=== PATIENT | female | born 1975 | race Hispanic/Latino ===

== ENCOUNTER 2020-09-23 15:14 | Inpatient (IN) | payer BC, SELFPAY ==
[2020-09-23] MEDS ORDERED: hydrALAZINE 20 MG/ML VIAL SLOW IVP PRN (16:12)
--- NOTE | 2020-09-23 16:12 | PDOC.LDHP ---
Labor and Delivery H&P HPI: 44 y/o with EDC of 10/16/20 at 36 weeks, transferred to [facility] by EMS from [facility] for Elevated BP and COVID-19 Positive Status. patient followed clinically by Dr. Philippe Nava, and seen earlier this week in his office. Current gestational age (weeks): 36 Due date: 10/16/20 Grav: 6 Para: 3 Current complications: other (Advanved Maternal Age, Morbid Obesity, COVID-19 Positive, Hx x3, SABx2, Size > Dates, 81mg use po qDay) - Physical Exam General: NAD, resting Heart: RRR Lungs: CTAB Abdomen: gravid Extremeties: no edema FHT: category 1 - Assessment COVID-19 Positive, Hypertensive Crisis thought to be caused by severe preeclampsia - Plan Plan: admit to L&D, to OR for section
[2020-09-23] MEDS ORDERED: Calcium Gluc 4.6 MEQ/10 ML (100 MG/ML) SLOW IVP PRN (16:15)
[2020-09-23] MEDS ORDERED: Bicitra 30 ML UDCUP PO SCH (16:15)
[2020-09-23] MEDS ORDERED: Magnesium Sulfate 20 GM/WATER 500 ML BAG IVPB SCH (16:15)
[2020-09-23] MEDS ORDERED: Ondansetron PF 4 MG/2 ML Vial ONE ×2 (16:20→17:50)
[2020-09-23] MEDS ORDERED: ePHEDrine 50 MG/ML VIAL ONE (16:20)
[2020-09-23] MEDS ORDERED: PHENYLEPHRINE-NS 100 MCG/ML 10 ML SYRINGE ONE (16:20)
[2020-09-23] MEDS ORDERED: Morphine PF 10 MG/10 ML VIAL ONE (16:20)
[2020-09-23] MEDS ORDERED: Oxytocin 10 UNITS/ML VIAL ONE (16:20)
[2020-09-23 16:24] LABS: Hemoglobin 13.1 g/dL (12.0-16.0); Mean Corpuscular HGB CONC 34.2 g/dL (32.0-36.0); Mean Corpuscular Hemoglobin 32.3 pg (27.0-31.0); Mean Corpuscular Volume 94.4 fL (78.0-98.0); Mean Platelet Volume 8.3 fL (7.4-10.4); Platelet Count 151 thou/uL (130-400); RBC Distribution Width 12.5 % (11.5-14.5); Red Blood Cell (RBC) Count 4.06 mill/uL (4.20-5.40); White Blood Cell (WBC) Count 9.8 thou/uL (4.8-10.8)
[2020-09-23 16:32] VITALS: BMI 44.4
[2020-09-23] MEDS: Labetalol HCl 100 MG/20 ML VIAL SLOW IVP PRN ×3 (16:32→22:06)
[2020-09-23] MEDS ORDERED: CEFAZOLIN 2 GM in Premix Bag 1 BAG IVPB SCH (16:45)
[2020-09-23 17:13] LABS: ALT (SGPT) 9 U/L (8-55); AST (SGOT) 16 U/L (5-34); Albumin 3.3 g/dL (3.5-5.0); Alkaline Phosphatase 157 U/L (40-110); Anion Gap 15 mmol/L (10-20); BUN (Urea Nitrogen) 9 mg/dL (7.0-18.7); Bilirubin, Total 0.3 mg/dL (0.2-1.2); Calc. Creatinine Clearance 172 mL/min (70-130); Calcium 9.3 mg/dL (7.8-10.44); Carbon Dioxide 19 mmol/L (22-29); Chloride 110 mmol/L (98-107); Globulin 2.9 g/dL (2.4-3.5); Glucose 89 mg/dL (70-105); Protein, Total 6.2 g/dL (6.0-8.3); Sodium 140 mmol/L (136-145)
[2020-09-23 17:19] LABS: HBSAg Index 0.15 S/CO (0-0.99); Hep B Surf Ag Non-Reactive S/CO (NonReactive); Syphilis Antibody Nonreactive (Nonreactive); Syphilis Antibody Index 0.03 S/CO (<1.00 Non-Reactive)
[2020-09-23] MEDS ORDERED: Ketamine 50 MG/ML (10ML VIAL) ONE (17:34)
[2020-09-23] MEDS ORDERED: Ketorolac Tromethamine 30 MG/ML VIAL ONE (17:50)
[2020-09-23] MEDS ORDERED: Dexamethasone 4 mg/ml Vial ONE (17:50)
[2020-09-23] MEDS ORDERED: Midazolam HCl 2 mg/2 ml Vial ONE (17:52)
[2020-09-23] MEDS ORDERED: PROPOFOL 20 ML ONE (17:55)
[2020-09-23] MEDS ORDERED: Naloxone HCl 0.4 mg/ml Vial IVP PRN ×2 (18:57)
[2020-09-23] MEDS ORDERED: Ondansetron HCl/PF 4 MG/2 ML Vial IVP PRN (18:57)
[2020-09-23] MEDS ORDERED: Naloxone HCl 0.4 mg/ml Vial IV PRN (18:57)
[2020-09-23] MEDS ORDERED: Ondansetron PF 4 MG/2 ML Vial IVP PRN (18:57)
[2020-09-23] MEDS ORDERED: Meperidine HCl/PF 25 MG/ML VIAL SLOW IVP PRN (18:57)
[2020-09-23] MEDS ORDERED: HYDROmorphone 2 MG/ML VIAL SLOW IVP PRN (18:57)
[2020-09-23] MEDS ORDERED: L&D-Morphine 4 MG/ML VIAL SLOW IVP PRN (18:57)
[2020-09-23] MEDS ORDERED: diphenhydrAMINE 50 MG/ML VIAL IVP PRN (18:57)
[2020-09-23] MEDS ORDERED: Promethazine HCl 25 MG/ML VIAL IM PRN (18:57)
[2020-09-23] MEDS ORDERED: Promethazine HCl 25 MG SUPP PR PRN (18:57)
[2020-09-23] MEDS ORDERED: Communication Order-Pharmacy FS SCH (19:00)
[2020-09-23 19:14] LABS: Creatinine, Urine Less than 20.00 mg/dL (47-110); Protein, Urine Random Quant Less than 10 mg/dL (1-14)
[2020-09-23] MEDS ORDERED: Labetalol HCl 100 MG/20 ML VIAL SLOW IVP SCH (19:30)
[2020-09-23 21:36] LABS: #Lymphocytes 1.2 thou/uL (1.20-3.40); #Monocytes 0.5 thou/uL (0.11-0.59); %Basophils 0.1 % (0.0-1.0); %Eosinophils 0.2 % (0.0-10.0); %Lymphocytes 6.2 % (21.0-51.0); %Monocytes 2.3 % (0.0-10.0); %Neutrophils 91.2 % (42.0-75.0); Hemoglobin 12.1 g/dL (12.0-16.0); Mean Corpuscular HGB CONC 32.9 g/dL (32.0-36.0); Mean Corpuscular Hemoglobin 31.8 pg (27.0-31.0); Mean Corpuscular Volume 96.6 fL (78.0-98.0); Mean Platelet Volume 8.2 fL (7.4-10.4); Platelet Count 153 thou/uL (130-400); RBC Distribution Width 12.4 % (11.5-14.5); Red Blood Cell (RBC) Count 3.81 mill/uL (4.20-5.40); White Blood Cell (WBC) Count 19.7 thou/uL (4.8-10.8)
[2020-09-23 21:48] LABS: Fibrinogen 600 mg/dL (253-463); INR-International Normal Ratio 0.9; Prothrombin Time 12.4 sec (12.0-14.7)
[2020-09-23 22:35] LABS: FSP-Qualitative ABNORMAL (Normal)
[2020-09-23 22:36] LABS: FSP-Semiquantitative >=5 & <20 mcg/mL (Less than 5)
[2020-09-23] MEDS: Ketorolac Tromethamine 30 MG/ML VIAL IVP PRN (23:58)
[2020-09-24] MEDS ORDERED: Misoprostol 200 MCG TAB PR PRN (02:07)
--- NOTE | 2020-09-24 02:07 | PDOC.PP ---
Post Progress Note Post Day #: 1 PO intake tolerated: no (CMP from last night is WNL. Repeat CBC. NL PT/INR. Fibrinogen is 400. No clear evidence of coagulopathy or DIC. Codi previously on ASA 81mg q Day (likely responisble for some intraoperative oozing). Plan to start Lovenoz 12 hours post op per ACOG guidelines.) Vital Signs (12 hours) Temp Pulse Resp BP BP Pulse Ox 09/24/20 00:00 93 152/70 H 09/23/20 22:06 82 160/74 H 09/23/20 19:46 77 174/83 H 09/23/20 16:52 88 09/23/20 16:32 88 09/23/20 16:21 98.3 F 88 16 181/85 H 97 Weight Weight 275 lb Result Diagrams: 09/23/20 21:20 09/23/20 16:16 Additional Labs: Post Labs Hep Bs Antigen Non-Reactive S/CO (NonReactive) 09/23/20 16:16 Blood Type O POSITIVE 09/23/20 16:44
[2020-09-24] MEDS: Ketorolac Tromethamine 30 MG/ML VIAL IVP PRN (06:03)
[2020-09-24 06:42] LABS: Mean Corpuscular HGB CONC 33.8 g/dL (32.0-36.0); Mean Corpuscular Hemoglobin 32.4 pg (27.0-31.0); Mean Corpuscular Volume 95.8 fL (78.0-98.0); Mean Platelet Volume 8.2 fL (7.4-10.4); Platelet Count 136 thou/uL (130-400); RBC Distribution Width 12.4 % (11.5-14.5); Red Blood Cell (RBC) Count 3.41 mill/uL (4.20-5.40); White Blood Cell (WBC) Count 15.6 thou/uL (4.8-10.8)
[2020-09-24] MEDS ORDERED: HYDROcodone/Acetaminophen 5/325 mg Tablet PO PRN (07:00)
[2020-09-24] MEDS ORDERED: Enoxaparin Sodium 40 MG/0.4 ML SYRINGE SC SCH (07:00)
[2020-09-24] MEDS ORDERED: Adacel (T-DAP) 0.5 ML SYRINGE IM ONE (09:00)
[2020-09-24] MEDS ORDERED: FLU VACC QS2020-21(6MOS UP)/PF 60 MCG/0.5 ML SYRINGE IM ONE (09:00)
[2020-09-24] MEDS: Magnesium Sulfate 20 gm/500 ml 20 GM/500 ML BAG IVPB SCH ×2 (09:48)
--- NOTE | 2020-09-24 13:38 | PDOC.PP ---
Post Progress Note Post Day #: 1 PO intake tolerated: yes Flatus: yes Ambulation: yes Weight Weight 275 lb - Physical Examination General: NAD Cardiovascular: no m/r/g, RRR Respiratory: clear to auscultation bilaterally, non-labored breathing Abdominal: + bowel sounds, lochia, no distention, appropriately TTP Extremities: negative homans (B) Neurological: no gross focal deficits Psychiatric: A&Ox3, normal affect Result Diagrams: 09/24/20 06:16 09/23/20 16:16 Additional Labs: Post Labs Hep Bs Antigen Non-Reactive S/CO (NonReactive) 09/23/20 16:16 Blood Type O POSITIVE 09/23/20 16:44
[2020-09-24] MEDS: Labetalol HCl 100 MG/20 ML VIAL SLOW IVP PRN ×4 (13:47→20:09)
[2020-09-24] MEDS: HYDROcodone/Acetaminophen 5/325 mg Tablet PO PRN (17:53)
[2020-09-24] MEDS ORDERED: NIFEdipine XL 60 MG TAB PO SCH (20:15)
[2020-09-24] MEDS: NIFEdipine XL 60 MG TAB PO SCH (20:15)
[2020-09-25] MEDS: Acetaminophen 500 MG TAB PO PRN ×2 (01:52→06:40)
[2020-09-25] MEDS: Labetalol HCl 100 MG/20 ML VIAL SLOW IVP PRN ×2 (02:00→06:36)
[2020-09-25 07:05] LABS: Hemoglobin 10.6 g/dL (12.0-16.0); Mean Corpuscular HGB CONC 33.3 g/dL (32.0-36.0); Mean Corpuscular Hemoglobin 32.3 pg (27.0-31.0); Mean Corpuscular Volume 96.9 fL (78.0-98.0); Mean Platelet Volume 8.4 fL (7.4-10.4); Platelet Count 149 thou/uL (130-400); RBC Distribution Width 12.8 % (11.5-14.5); Red Blood Cell (RBC) Count 3.29 mill/uL (4.20-5.40); White Blood Cell (WBC) Count 9.2 thou/uL (4.8-10.8)
[2020-09-25] MEDS: HYDROcodone/Acetaminophen 5/325 mg Tablet PO PRN (15:20)
--- NOTE | 2020-09-25 19:37 | PDOC.PP ---
Post Progress Note Post Day #: 2 PO intake tolerated: yes Flatus: yes Ambulation: yes Vital Signs (12 hours) Temp Pulse Resp BP Pulse Ox 09/25/20 17:57 99.1 F 105 H 09/25/20 15:37 99.9 F H 108 H 18 143/83 H 95 Weight Weight 275 lb - Physical Examination General: NAD Cardiovascular: no m/r/g, RRR Respiratory: clear to auscultation bilaterally Abdominal: + bowel sounds, lochia Extremities: negative homans (B) Skin: CS incision dry & intact, no rash Neurological: no gross focal deficits Psychiatric: A&Ox3, normal affect Result Diagrams: 09/25/20 06:19 09/23/20 16:16 Additional Labs: Post Labs Hep Bs Antigen Non-Reactive S/CO (NonReactive) 09/23/20 16:16 Blood Type O POSITIVE 09/23/20 16:44 - Assessment/Plan Pt is cliniacally stable on Procardia 60mg XL now. Low grade fever, and loss of taiste and smell are repoted. Otherwise, no other COVID symptoms are reported at this time. I will go ahead and have patient ready for DC home tomorrow, with f/u with Dr. Nava needed within 72 hours of Discharge given BP and ACOG guidelines.
[2020-09-25] MEDS: Ibuprofen 800 MG TAB PO SCH (20:33)
[2020-09-25] MEDS: NIFEdipine XL 60 MG TAB PO SCH (20:34)
--- NOTE | 2020-09-26 00:19 | OP ---
DATE OF PROCEDURE: 09/23/2020 TIME: 1737 hours Central Standard time. PREOPERATIVE DIAGNOSIS: Intrauterine at 36 weeks and 5 days with a diagnosis of severe preeclampsia and hypertensive crisis, morbid obesity, history of three previous sections, COVID-19 positive upon admission. POSTOPERATIVE DIAGNOSIS: Intrauterine at 36 weeks and 5 days with a diagnosis of severe preeclampsia and hypertensive crisis, morbid obesity, history of three previous sections, COVID-19 positive upon admission. PROCEDURE PERFORMED: Repeat 4th low-transverse section. TECHNICIAN SUPPORT [employer]IATION: Kennedy Mccarthy MD QUANTITATIVE BLOOD LOSS: 1110 mL. COMPLICATIONS: Small intraoperative hemorrhage noted, which seemed to be a result of oozing from small blood vessels. This required considerable effort to pinpoint small blood vessels and use cautery as well as suture technique to obtain hemostasis following closure of the uterus. This was thought to be largely responsible due to the fact that the patient was taking aspirin as well as her blood pressures remained elevated during surgery. Although the patient had no strong reasons for us to suspect disseminated intravascular coagulopathy, we did decide to order coagulation studies following the section along with fibrinogen and fibrinogen split products to further investigate that slight possibility. Due to the patient's body mass, we did decide to go ahead and use Lovenox postoperatively, but we waited approximately 12 hours to begin Lovenox given her propensity for oozing during surgery. DESCRIPTION OF PROCEDURE: The patient was consented and taken back to the operating room where spinal anesthesia was found to be adequate. She was then prepped and draped in the normal sterile fashion. A timeout was performed by the entire operative team. The incision was then marked with a marking pen tested using sharp pickups. An incision was then made with a scalpel. The incision was carried through the adipose tissue down to the underlying rectus fascia using both sharp dissection as well as cautery. Once the fascia was identified, it was incised in the midline and then the fascial incision was carried through in both lateral directions using sharp as well as cautery dissection techniques. Next, the superior aspect of the rectus fascia was grasped with 2 Anais clamps, which was tented up and the rectus muscles were dissected off using blunt dissection as well as cautery dissection. Similarly, the inferior aspect of the fascial incision was grasped with 2 Anais clamps, tented up and the rectus muscles were dissected off bluntly as well as sharply. Next, the rectus muscles were in the midline and the peritoneum identified. The peritoneum was then carefully grasped with 2 hemostats and entered sharply. The peritoneal incision was extended superiorly and inferiorly and bladder blade was placed in the lower abdomen. At this point, the uterus was identified and the bladder flap was then developed using pickups with teeth as well as Metzenbaum scissors in both lateral directions. The bladder flap was then dissected downwards using the tread tuber machine operator's finger as well as Metzenbaum scissors. The bladder blade was replaced. The lower uterine segment was then identified and entered sharply using a clean scalpel. The uterine incision was then dissected downwards until thin layer of muscle remained and this was entered bluntly using a hemostat to avoid any injury to the baby. The uterine incision was then stretched using two fingers in both lateral directions. An amniotomy was performed artificially using a hemostat and the baby was delivered using fundal pressure in a gentle fashion. Once out, the baby's mouth and nose were bulb suctioned, cord clamped and cut, and the baby was handed to waiting attendants. Next, the uterus was exteriorized, cleared of all clots and debris and the uterine incision was repaired with #1 Monocryl in a running locking fashion. A 2nd suture of the same type was used to obtain complete hemostasis at the uterine incision. The bladder flap was reapproximated using 3-0 Monocryl. Next, patient's left and right adnexa were inspected and appeared to be within normal limits. The posterior cul-de-sac was blotted dry and hemostasis assured. One more look at the uterine incision demonstrated hemostasis. Next, the uterus was replaced back within the abdomen. The peritoneum was reapproximated using 2-0 Monocryl without difficulty. The rectus muscles were then allowed to come back together and 0 chromic was used to aid in reapproximation of the muscle as necessary. The rectus fascia was then reapproximated in a running fashion using 0 Vicryl suture. The adipose tissue was then examined and appeared to be well approximated without any obvious separations. Finally, the skin was reapproximated with 3-0 Monocryl on a Tato needle without difficulty and Dermabond adhesive was applied to the skin. Once the glue was dry, the drapes were removed and the patient was transferred to an ambulatory bed where she was taken to recovery awake and in stable condition. Sponge, lap, and needle counts were correct x3. Job ID: [id number]
[2020-09-26] MEDS: Ibuprofen 800 MG TAB PO SCH (05:03)
[2020-09-26] MEDS ORDERED: Prenatal Vitamin 1 TAB PO SCH (09:00)
[2020-09-26] MEDS ORDERED: Docusate Calcium (SURFAK) 240 MG CAP PO SCH (09:00)
[2020-09-26 09:35] VITALS: BP 137/78; TEMP 97.9
== END 2020-09-26 12:45 | disposition home or self-care (01) | DRG 786 ==
LOC: L&D 16:17 → 3SW 09-25 14:36
PROVIDERS: ADMIT Obstetrics & Gynecology; ATTEND Obstetrics & Gynecology
PROC: 10D00Z1 Extraction of Products of Conception, Low, Open Approach (ICD-10-PCS; principal; 2020-09-23)
DX: O34.219 Maternal care for unspecified type scar from previous cesarean delivery (principal); U07.1 COVID-19; O98.52 Other viral diseases complicating childbirth; N99.62 Intraoperative hemorrhage and hematoma of a genitourinary system organ or structure complicating other procedure; Z3A.36 36 weeks gestation of pregnancy; Z37.0 Single live birth; O99.214 Obesity complicating childbirth; E66.01 Morbid (severe) obesity due to excess calories; O14.14 Severe pre-eclampsia complicating childbirth; Y83.9 Surgical procedure, unspecified as the cause of abnormal reaction of the patient, or of later complication, without mention of misadventure at the time of the procedure
CPT/HCPCS: 36415; 51702; 80053; 82570; 84156; 85027; 85362; 85384; 85610; 86780; 86850; 86900; 86901; 87340; 88307; 90715; J0690; J1100; J1650; J1885; J2250; J2270; J2405; J2704; J3475; J3490

== ENCOUNTER 2022-09-26 15:15 | Inpatient (IN) | payer BC ==
[2022-10-09 10:13] VITALS: BMI 44.4
[2022-10-10] MEDS ORDERED: Bupivacaine/Epinephrine 0.25% 30 ML VIAL ONE (06:51)
[2022-10-10] MEDS ORDERED: Midazolam HCl 2 mg/2 ml Vial ONE (07:06)
[2022-10-10] MEDS ORDERED: Heparin 5,000 UNITS/ML VIAL ONE (07:06)
[2022-10-10] MEDS ORDERED: fentaNYL PF 100 MCG/2 ML SYRINGE ONE (07:16)
[2022-10-10] MEDS ORDERED: CEFAZOLIN 2 GM VIAL ONE (07:29)
[2022-10-10] MEDS ORDERED: Sodium Chloride 0.9% 100 ML ONE (07:29)
[2022-10-10] MEDS ORDERED: PROPOFOL 200 MG/20 ML VIAL ONE (07:42)
[2022-10-10] MEDS ORDERED: ePHEDrine 50 MG/ML VIAL ONE (07:42)
[2022-10-10] MEDS ORDERED: Ondansetron PF 4 MG/2 ML Vial ONE (07:42)
[2022-10-10] MEDS ORDERED: Dexamethasone 20 MG/5 ML VIAL ONE (07:42)
[2022-10-10] MEDS ORDERED: Ketorolac Tromethamine 30 MG/ML VIAL ONE (07:42)
[2022-10-10] MEDS ORDERED: Rocuronium Bromide 10 MG/ML (10ML VIAL) ONE (07:42)
[2022-10-10] MEDS ORDERED: SUGAMMADEX SODIUM 200 MG/2 ML VIAL ONE (07:46)
[2022-10-10 07:47] LABS: SARS-CoV-2 NAA Rapid Test Not Detected (NotDetected)
[2022-10-10] MEDS ORDERED: Ondansetron PF 4 MG/2 ML Vial IVP PRN (08:58)
[2022-10-10] MEDS ORDERED: Dextrose 50% Abboject 50 ML SYRINGE SLOW IVP PRN (08:58)
[2022-10-10] MEDS ORDERED: hydrALAZINE 20 MG/ML VIAL SLOW IVP PRN (08:58)
[2022-10-10] MEDS ORDERED: Dextrose 5% in Water 1,000 ML IV PRN (08:58)
[2022-10-10] MEDS ORDERED: Promethazine HCl 25 MG/ML VIAL IM PRN (08:58)
[2022-10-10] MEDS ORDERED: Morphine 4 MG/ML VIAL SLOW IVP PRN ×2 (08:58→09:49)
[2022-10-10] MEDS ORDERED: Hydrocodone-Acetamin 15 ML UDCUP PO PRN (08:58)
[2022-10-10] MEDS ORDERED: diphenhydrAMINE 50 MG/ML VIAL IVP PRN (08:58)
[2022-10-10] MEDS: Pantoprazole 40 MG VIAL IVP SCH (09:00)
[2022-10-10] MEDS: Enoxaparin Sodium 40 MG/0.4 ML SYRINGE SC SCH (09:00)
[2022-10-10] MEDS: D5 1/2 NS w/20 mEq KCL 1,000 ML IV SCH ×3 (09:00→20:38)
[2022-10-10] MEDS ORDERED: HYDROmorphone 0.5 MG/0.5 ML SYRINGE ONE ×4 (09:13→10:45)
[2022-10-10] MEDS ORDERED: D5 1/2 NS w/20 mEq KCL 1,000 ML ONE (09:18)
[2022-10-10] MEDS ORDERED: FENTANYL 50 MCG/ML 1 ML VIAL ONE ×3 (11:44→13:46)
[2022-10-10] MEDS: Ketorolac Tromethamine 30 MG/ML VIAL IVP SCH ×3 (12:00→23:35)
[2022-10-10] MEDS ORDERED: hydrALAZINE 20 MG/ML VIAL ONE ×2 (13:15→13:32)
[2022-10-10] MEDS ORDERED: Non-Formulary Medication 1 EACH PO PRN (15:02)
[2022-10-10] MEDS ORDERED: Promethazine HCl 25 MG/ML VIAL IM/IV PRN (15:15)
[2022-10-10] MEDS ORDERED: HYDROmorphone 2 MG/ML VIAL SLOW IVP PRN (15:15)
[2022-10-10] MEDS ORDERED: Ondansetron HCl/PF 4 MG/2 ML Vial IVP PRN (15:15)
[2022-10-10] MEDS: CEFAZOLIN 2 GM in Sodium Chloride 0.9% 100 ML IVPB SCH ×2 (15:48→23:35)
[2022-10-11] MEDS: Ketorolac Tromethamine 30 MG/ML VIAL IVP SCH ×2 (05:19→11:09)
[2022-10-11 05:56] LABS: #Eosinphils 0.1 thou/uL (0.0-0.7); #Lymphocytes 1.6 thou/uL (1.20-3.40); #Monocytes 0.7 thou/uL (0.11-0.59); #Neutrophils 8.2 thou/uL (1.40-6.50); %Lymphocytes 15.3 % (21.0-51.0); %Monocytes 6.8 % (0.0-10.0); %Neutrophils 76.8 % (42.0-75.0); Hemoglobin 13.5 g/dL (12.0-16.0); Mean Corpuscular HGB CONC 32.1 g/dL (32.0-36.0); Mean Corpuscular Hemoglobin 31.4 pg (27.0-31.0); Mean Corpuscular Volume 97.7 fl (78.0-98.0); Mean Platelet Volume 9.5 fL (7.4-10.4); Platelet Count 144 10x3/uL (130-400); RBC Distribution Width 11.6 % (11.5-14.5); Red Blood Cell (RBC) Count 4.31 mill/uL (4.20-5.40); White Blood Cell (WBC) Count 10.7 10x3/uL (4.8-10.8)
[2022-10-11 06:12] LABS: Anion Gap 9 mmol/L (10-20); BUN (Urea Nitrogen) 7 mg/dL (7.0-18.7); Calc. Creatinine Clearance 184 mL/min (70-130); Calcium 8.7 mg/dL (7.8-10.44); Carbon Dioxide 21 mmol/L (22-29); Chloride 110 mmol/L (98-107); Estimated GFR 104; Glucose 114 mg/dL (70-105); Sodium 136 mmol/L (136-145)
[2022-10-11] MEDS: Pantoprazole 40 MG VIAL IVP SCH (08:00)
[2022-10-11] MEDS: Enoxaparin Sodium 40 MG/0.4 ML SYRINGE SC SCH (08:00)
[2022-10-11] MEDS: D5 1/2 NS w/20 mEq KCL 1,000 ML IV SCH (08:19)
[2022-10-11 12:17] VITALS: BP 126/80; TEMP 97.6
== END 2022-10-11 13:20 | disposition home or self-care (01) | DRG 621 ==
LOC: SURG A 10-10 06:05
PROVIDERS: ADMIT Surgery; ATTEND Surgery
PROC: 0DB64Z3 Excision of Stomach, Percutaneous Endoscopic Approach, Vertical (ICD-10-PCS; principal; 2022-10-10)
PROC: 8E0W4CZ Robotic Assisted Procedure of Trunk Region, Percutaneous Endoscopic Approach (ICD-10-PCS; 2022-10-10)
DX: E66.01 Morbid (severe) obesity due to excess calories (principal); Z20.822 Contact with and (suspected) exposure to COVID-19; Z68.41 Body mass index [BMI] 40.0-44.9, adult
CPT/HCPCS: 36415; 80048; 85025; 88307; C9113; J0360; J1100; J1170; J1644; J1650; J1885; J2250; J2270; J2405; J2704; J3010; J3480; J3490; U0002

== ENCOUNTER 2022-09-26 15:28 | Outpatient (CLI) | payer BC ==
[2022-09-26 16:13] LABS: #Eosinphils 0.4 10x3/uL (0.0-0.5); #Monocytes 0.4 10x3/uL (0.0-1.1); %Basophils 0.6 % (0.0-2.0); %Eosinophils 6.2 % (0.0-6.0); %Lymphocytes 30.1 % (18.0-47.0); %Monocytes 5.7 % (0.0-10.0); %Neutrophils 57.3 % (40.0-75.0); Mean Corpuscular HGB CONC 33.5 g/dL (32.0-36.0); Mean Corpuscular Hemoglobin 30.6 pg (27.0-33.0); Mean Corpuscular Volume 91.5 fl (81.6-98.3); Mean Platelet Volume 10.1 fl (7.4-10.4); Platelet Count 245 10x3/uL (150-450); RBC Distribution Width 12.4 % (11.5-14.5); Red Blood Cell (RBC) Count 4.57 10x6/uL (3.90-5.03)
[2022-09-26 16:24] LABS: Pregs Control Background? CLEAR/WHITE (CLR/WHITE); Pregs Control Bar Appear? YES (CONTROL BAR)
[2022-09-26 16:28] LABS: BHCG - Serum Negative (NEGATIVE)
[2022-09-26 16:35] LABS: ALT (SGPT) 18 U/L (8-55); AST (SGOT) 18 U/L (5-34); Albumin 4.4 g/dL (3.5-5.0); Alkaline Phosphatase 82 U/L (40-110); Anion Gap 12 mmol/L (10-20); BUN (Urea Nitrogen) 16 mg/dL (7.0-18.7); Bilirubin, Total 1.1 mg/dL (0.2-1.2); Calc. Creatinine Clearance 0 mL/min (70-130); Calcium 9.4 mg/dL (7.8-10.44); Carbon Dioxide 25 mmol/L (22-29); Chloride 107 mmol/L (98-107); Estimated GFR 83; Globulin 2.8 g/dL (2.4-3.5); Glucose 87 mg/dL (70-105); Potassium 4.1 mmol/L (3.5-5.1); Protein, Total 7.2 g/dL (6.0-8.3); Sodium 140 mmol/L (136-145)
[2022-09-26 22:07] LABS: Hemoglobin A1c 5.3 % (4.0-6.0)
== END 2022-09-26 15:29 | disposition home or self-care (01) ==
LOC: LABBT 15:28
PROVIDERS: ATTEND Surgery
DX: Z01.818 Encounter for other preprocedural examination (principal); E66.01 Morbid (severe) obesity due to excess calories
CPT/HCPCS: 71046; 80053; 83036; 84703; 85025; 93005; 93010